=== PATIENT | female | born 1950 | race Caucasian/White ===

== ENCOUNTER → 2017-07-17 | Outpatient (CLI) | payer MEDICARE ==
[~2017-07-17] MED LIST: CYC10 PO; FAMO-1 IV; STERIOD
--- NOTE | 2017-07-17 09:02 | RADIOLOGY IMAGING REPORT ---
FACILITY: [facility] PATIENT NAME: Rosaline Jeff : 1950 MR: [id number] V: [id number] EXAM DATE: ORDERING PHYSICIAN: YORDAN MAYA TECHNOLOGIST: Location: [facility] Patient: Rosaline Jeff : 1950 Visit/Account:[id number] Date of Sevice: 07/17/2017 DEXA Scan Clinical history: Postmenopausal. Comparison: None available. HIP: Bone mineral density (BMD) measured in the Left total hip region correlates with a Z-score 0.7 and a T-score of -0.4 which is Normal as defined by the World Health Organization. The corresponding risk of fracture in the hip is Not increased compared with a young adult reference population. Bone mineral density (BMD) measured in the Femoral Neck region measures 0.872 g/cm2. Corresponding T score is -1.2. Osteopenia. Impression: 1. Left Hip: Normal. 2. Femoral Neck: Bone Mineral Density is 0.872 g/cm2 osteopenia The next DEXA scan of this patient should include the following sites: Left hip. FRAX? WHO Fracture Risk Assessment Tool link: <http://www.shef.ac.uk/FRAX/tool.jsp?locationValue=9> PLEASE NOTE: 1) The World Health Organization defines low BMD as follows: T-score Normal > -1 Osteopenia < -1 and > -2.5 Osteoporosis < -2.5 without fractures Established osteoporosis < -2.5 with fractures 2) In general, you may wish to consider: Diagnosis Treatment Follow-up DEXA Normal BMD Prevention 2-3 years Osteopenia Prevention/therapy 1-2 years Osteoporosis Therapy Yearly 3) Fracture risk estimated from the T-score is more accurate for vertebral fractures (often spontane ous) than for hip fractures. Report Dictated By: Mic Balderrama MD at 07/17/2017 8:55 AM Report E-Signed By: Mic Balderrama MD at 07/17/2017 8:57 AM WSN:[id number]
--- NOTE | 2017-07-24 11:18 | RADIOLOGY IMAGING REPORT ---
FACILITY: [facility] PATIENT NAME: MINERVA MALDONADO : [id number] MR: [id number] V: [id number] EXAM DATE: [id number] ORDERING PHYSICIAN: YORDAN MAYA TECHNOLOGIST: Annette Rivero PROCEDURE:BILATERAL DIGITAL SCREENING MAMMOGRAM WITH CAD ASSISTED INTERPRETATION AND 3D BREAST TOMOSYNTHESIS. COMPARISON:Prior mammograms dated 05/28/16, 02/23/15 and 11/27/12. INDICATIONS:SCREENING. FINDINGS: A small amount of fibroglandular tissue is seen throughout the breasts. The parenchymal pattern has remained stable when allowing for difference in mammographic technique and patient positioning. There is no evidence of malignant appearing mass, malignant appearing calcification or other secondary sign of malignancy in either breast. DIAGNOSTIC CATEGORY 1--NEGATIVE. RECOMMENDATIONS: ROUTINE MAMMOGRAM AND CLINICAL EVALUATION. IMPRESSION: Bi-RADS 1: No significant abnormality is seen. Images were reviewed with R2CAD and 3D breast tomosynthesis. Dictated by: Heather Walter M.D. on 07/17/2017 at 8:50 Transcribed by: DIXON on 07/17/2017 at 20:37 Approved by: Heather Walter M.D. on 07/18/2017 at 8:14 [facility]
== END ==
LOC: MAMO 00:57
PROVIDERS: ATTEND Physician Assistant
DX: Z13.820 Encounter for screening for osteoporosis (principal); Z12.31 Encounter for screening mammogram for malignant neoplasm of breast; N95.8 Other specified menopausal and perimenopausal disorders; M85.88 Other specified disorders of bone density and structure, other site
CPT/HCPCS: 77063; 77080; G0202; 77067

== ENCOUNTER → 2018-07-10 | Outpatient (CLI) | payer MEDICARE ==
--- NOTE | 2018-07-10 16:45 | RADIOLOGY IMAGING REPORT ---
FACILITY: [facility] PATIENT NAME: Rosaline Jeff : 1950 MR: [id number] V: [id number] EXAM DATE: ORDERING PHYSICIAN: YORDAN MAYA TECHNOLOGIST: Location: [facility] Patient: Rosaline Jeff : 1950 Visit/Account:[id number] Date of Sevice: 07/10/2018 Left lower extremity venous Doppler duplex ultrasound scan. HISTORY: Localized edema, pain inner thigh for one month. COMPARISON: None. A venous color flow Doppler duplex ultrasound scan with spectral analysis was performed on the left l ower extremity. The left greater saphenous vein is thrombosed from the knee to the saphenofemoral ju nction. The trifurcation veins, popliteal vein, superficial femoral vein, and common femoral vein compress an d augment normally. No filling defects are present to suggest acute or chronic thrombosis in the deep venous system. IMPRESSION: Left greater saphenous vein superficial thrombophlebitis. Otherwise negative for acute deep vein thrombosis. Report Dictated By: Martinez Esteban MD at 07/10/2018 4:39 PM Report E-Signed By: Martinez Esteban MD at 07/10/2018 4:41 PM WSN:[id number]
== END ==
LOC: US 14:48
PROVIDERS: ATTEND Physician Assistant
DX: R60.0 Localized edema (principal); I80.02 Phlebitis and thrombophlebitis of superficial vessels of left lower extremity

== ENCOUNTER 2018-10-22 08:53 | Observation (INO) | payer MEDICARE ==
[~2018-10-22] VITALS: Ht 170.2 cm; Wt 77.6 kg
[~2018-10-22 08:53] MED LIST changes: -FAMO-1 IV; +FAMO-1 PO
[2018-10-22] MEDS ORDERED: LORazepam 2 MG/ML VIAL IVP ONE ×2 (09:20→10:45)
[2018-10-22] MEDS ORDERED: fentaNYL CITR 100 MCG/2 ML AMP IVP ONE (09:20)
--- NOTE | 2018-10-22 09:23 | ER Report ---
History and Physical Time Seen By MD: 09:23 Hx. of Stated Complaint: SEVERE L LEG PAIN, CLOT DX, DENIES BEING PRESCRIBED A BLOOD THINNER HPI/ROS CHIEF COMPLAINT: Atraumatic left knee pain HISTORY OF PRESENT ILLNESS: Patient is a 68-year-old female who presents to the emergency department with complaint of atraumatic left knee pain that is severe in intensity. She denies any known trauma however she states she works out 1-2 times a day but states the day prior to the swelling she did not work out. She denies any fevers or chills. She denies any redness to the joint. She does report some arthritis to the hands but it is never affected knee. She has severe pain with movement of the knee as well as bearing weight. Patient reports that she was seen here either in May of June 2018 for a palpable cord to her left inner leg and thigh. She was diagnosed with a superficial thrombophlebitis but no deep venous thrombosis was diagnosed. He is not currently on any anticoagulation. She has been taking both Motrin and Tylenol with minimal relief of discomfort because of the pain patient presents to the emergency department for evaluation. REVIEW OF SYSTEMS: Constitutional: No fever, no chills. Cardiovascular: No chest pain, no palpitations. Respiratory: No cough, no shortness of breath. Gastrointestinal: No abdominal pain, no vomiting. Musculoskeletal: Left knee pain and swelling Skin: No rashes. Allergies: Coded Allergies: No Known Drug Allergies (Verified , 03/07/08) Home Meds Reported Medications Famotidine (Pepcid) 20 Mg Tablet, 20 MG IV BID 03/07/08 Discontinued Reported Medications Cyclobenzaprine Hcl (Flexeril) 10 Mg Tab, 10 MG PO BID 03/07/08 Past Medical/Surgical History History of superficial venous thrombosis. History of arthritis to the hands. Hx Substance Use Disorder: No Hx Alcohol Use: No Constitutional Vital Sign - Last 24 Hours 10/22/18 10/22/18 10/22/18 10/22/18 08:59 09:01 09:08 09:23 Temp 98.1 Pulse 86 80 79 Resp 16 B/P (MAP) 135/63 135/63 (87) Pulse Ox 93 92 93 O2 Delivery Room Air 10/22/18 10/22/18 10/22/18 10/22/18 09:30 09:38 09:53 10:00 Pulse 82 79 B/P (MAP) 113/63 (80) 120/113 (115) Pulse Ox 95 92 10/22/18 10/22/18 10/22/18 10/22/18 10:08 10:23 10:30 10:38 Pulse 78 77 78 B/P (MAP) 140/88 (105) Pulse Ox 94 93 94 10/22/18 10/22/18 10/22/18 12:38 12:44 14:29 Temp 100.0 99.5 O2 Flow Rate 2.0 Physical Exam General appearance: Alert no distress. Left knee: There is no significant swelling. There is a moderate effusion There is no obvious deformity of the knee. There is moderate tenderness to the the knee joint. There is no overlying erythema. There is no tenderness proximal or distal to the knee. Neurologic exam: The patient has normal sensation distal to the injury. Vascular exam: Normal pulses and capillary refill in the foot [ ] DIFFERENTIAL DIAGNOSIS: After history and physical exam differential diagnosis was considered for knee injury including sprain, fracture, joint effusion, arthritis, infection, meniscus injury and soft tissue injury. Medical Decision Making Data Points Result Diagram: 10/22/18 0943 10/22/18 0943 Laboratory Hematology Test 10/22/18 09:43 10/22/18 11:04 10/22/18 13:40 Red Blood Count 4.42 M/uL (4.17-5.56) Mean Corpuscular Volume 88.0 fL (80.0-96.0) Mean Corpuscular Hemoglobin 29.8 pg (26.0-33.0) Mean Corpuscular Hemoglobin Concent 33.9 g/dL (32.0-36.0) Red Cell Distribution Width 13.5 % (11.5-14.5) Mean Platelet Volume 8.5 fL (7.2-11.1) Neutrophils (%) (Auto) 75.9 % (39.4-72.5) Lymphocytes (%) (Auto) 11.5 % (17.6-49.6) Monocytes (%) (Auto) 12.0 % (4.1-12.4) Eosinophils (%) (Auto) 0.3 % (0.4-6.7) Basophils (%) (Auto) 0.3 % (0.3-1.4) Nucleated RBC Relative Count (auto) 0.0 /100WBC Neutrophils # (Auto) 7.2 K/uL (2.0-7.4) Lymphocytes # (Auto) 1.1 K/uL (1.3-3.6) Monocytes # (Auto) 1.1 K/uL (0.3-1.0) Eosinophils # (Auto) 0.0 K/uL (0.0-0.5) Basophils # (Auto) 0.0 K/uL (0.0-0.1) Nucleated RBC Absolute Count (auto) 0.00 K/uL Erythrocyte Sedimentation Rate 11 mm/HOUR (0-30) D-Dimer Quantitative (PE/DVT) 1.86 ug/ml (0-0.50) Sodium Level 140 mmol/L (137-145) Potassium Level 3.2 mmol/L (3.5-5.0) Chloride Level 108 mmol/L (98-107) Carbon Dioxide Level 21 mmol/L (22-31) Blood Urea Nitrogen 8 mg/dl (7-18) Creatinine 0.80 mg/dl (0.52-1.04) Glomerular Filtration Rate Calc > 60.0 Random Glucose 110 mg/dl (75-110) Calcium Level 8.9 mg/dl (8.4-10.2) C-Reactive Protein 3.6 mg/dl (<1.0) Body Fluid Type Synovial fluid Body Fluid WBC 03033 Body Fluid RBC 3830 Body Fluid Neutrophils 73 % Body Fluid Lymphocytes 22 % Body Fluid Monocytes 5 % Body Fluid Eosinophils 0 % Body Fluid Basophils 0 % Body Fluid Crystals None Urine Color Denisha Urine Clarity Cloudy Urine pH 5.0 pH (4.8-9.5) Urine Specific [place] 1.028 Urine Protein Negative mg/dL (NEGATIVE) Urine Glucose (UA) Negative mg/dL (NEGATIVE) Urine Ketones Trace mg/dL (NEGATIVE) Urine Blood Negative (NEGATIVE) Urine Nitrite Negative (NEGATIVE) Urine Bilirubin Negative (NEGATIVE) Urine Urobilinogen Negative mg/dL (0.2-1.9) Urine Leukocyte Esterase Small (NEGATIVE) Urine RBC 5 /HPF (0-2/HPF) Urine WBC 12 /HPF (0-5/HPF) Urine Squamous Epithelial Cells Many /LPF (</=FEW) Urine Bacteria Negative /HPF (NONE-FEW) Urine Mucus Few /HPF (NONE-FEW) Chemistry Test 10/22/18 09:43 10/22/18 11:04 10/22/18 13:40 White Blood Count 9.5 k/uL (4.5-11.0) Red Blood Count 4.42 M/uL (4.17-5.56) Hemoglobin 13.2 g/dL (12.0-16.0) Hematocrit 39.0 % (34.0-47.0) Mean Corpuscular Volume 88.0 fL (80.0-96.0) Mean Corpuscular Hemoglobin 29.8 pg (26.0-33.0) Mean Corpuscular Hemoglobin Concent 33.9 g/dL (32.0-36.0) Red Cell Distribution Width 13.5 % (11.5-14.5) Platelet Count 281 K/uL (150-450) Mean Platelet Volume 8.5 fL (7.2-11.1) Neutrophils (%) (Auto) 75.9 % (39.4-72.5) Lymphocytes (%) (Auto) 11.5 % (17.6-49.6) Monocytes (%) (Auto) 12.0 % (4.1-12.4) Eosinophils (%) (Auto) 0.3 % (0.4-6.7) Basophils (%) (Auto) 0.3 % (0.3-1.4) Nucleated RBC Relative Count (auto) 0.0 /100WBC Neutrophils # (Auto) 7.2 K/uL (2.0-7.4) Lymphocytes # (Auto) 1.1 K/uL (1.3-3.6) Monocytes # (Auto) 1.1 K/uL (0.3-1.0) Eosinophils # (Auto) 0.0 K/uL (0.0-0.5) Basophils # (Auto) 0.0 K/uL (0.0-0.1) Nucleated RBC Absolute Count (auto) 0.00 K/uL Erythrocyte Sedimentation Rate 11 mm/HOUR (0-30) D-Dimer Quantitative (PE/DVT) 1.86 ug/ml (0-0.50) Glomerular Filtration Rate Calc > 60.0 Calcium Level 8.9 mg/dl (8.4-10.2) C-Reactive Protein 3.6 mg/dl (<1.0) Body Fluid Type Synovial fluid Body Fluid WBC 67821 Body Fluid RBC 3830 Body Fluid Neutrophils 73 % Body Fluid Lymphocytes 22 % Body Fluid Monocytes 5 % Body Fluid Eosinophils 0 % Body Fluid Basophils 0 % Body Fluid Crystals None Urine Color Denisha Urine Clarity Cloudy Urine pH 5.0 pH (4.8-9.5) Urine Specific [place] 1.028 Urine Protein Negative mg/dL (NEGATIVE) Urine Glucose (UA) Negative mg/dL (NEGATIVE) Urine Ketones Trace mg/dL (NEGATIVE) Urine Blood Negative (NEGATIVE) Urine Nitrite Negative (NEGATIVE) Urine Bilirubin Negative (NEGATIVE) Urine Urobilinogen Negative mg/dL (0.2-1.9) Urine Leukocyte Esterase Small (NEGATIVE) Urine RBC 5 /HPF (0-2/HPF) Urine WBC 12 /HPF (0-5/HPF) Urine Squamous Epithelial Cells Many /LPF (</=FEW) Urine Bacteria Negative /HPF (NONE-FEW) Urine Mucus Few /HPF (NONE-FEW) Coagulation Test 10/22/18 09:43 D-Dimer Quantitative (PE/DVT) 1.86 ug/ml Urinalysis Test 10/22/18 13:40 Urine Color Denisha Urine Clarity Cloudy Urine pH 5.0 pH (4.8-9.5) Urine Specific [place] 1.028 Urine Protein Negative mg/dL (NEGATIVE) Urine Glucose (UA) Negative mg/dL (NEGATIVE) Urine Ketones Trace mg/dL (NEGATIVE) Urine Blood Negative (NEGATIVE) Urine Nitrite Negative (NEGATIVE) Urine Bilirubin Negative (NEGATIVE) Urine Urobilinogen Negative mg/dL (0.2-1.9) Urine Leukocyte Esterase Small (NEGATIVE) Urine RBC 5 /HPF (0-2/HPF) Urine WBC 12 /HPF (0-5/HPF) Urine Squamous Epithelial Cells Many /LPF (</=FEW) Urine Bacteria Negative /HPF (NONE-FEW) Urine Mucus Few /HPF (NONE-FEW) Microbiology Microbiology Date/Time Source Procedure Growth Status 10/22/18 11:04 Synovial Fluid Knee Gram Stain - Final Resulted 10/22/18 11:04 Synovial Fluid Knee Body Fluid Culture Pending Resulted 10/22/18 11:04 Synovial Fluid Knee Anaerobic Culture Pending Resulted EKG/Imaging Imaging FACILITY: [facility] [place] PATIENT NAME: Rosaline Jeff : 1950 MR: [id number] V: [id number] EXAM DATE: ORDERING PHYSICIAN: HAYDER REAL TECHNOLOGIST: Location[place] [facility] [place] Patient: Rosaline Jeff : 1950 Visit/Account:[id number] Date of Sevice: 10/22/2018 Left knee Indication: Left knee swelling Comparison: None available Findings: 3 views left knee were obtained. Alignment is anatomic. Minimal spurring is seen involving the tibial tuberosity. Mild articular surface spurring is seen of the patella subtle enthesopathy at the insertion of the quadriceps tendon. Benign-appearing soft tissue calcifications are seen posterior to the joint space. IMPRESSION: 1. There is mild tricompartmental degenerative changes with joint effusion. No acute osseous finding. Report Dictated By: Mic Balderrama MD at 10/22/2018 11:29 AM Report E-Signed By: Mic Balderrama MD at 10/22/2018 11:31 AM WSN:[id number] ED Course/Re-evaluation ED Course 10/22/2018 9:28:36 am plan at this time will be to provide some pain relief with Ativan and fentanyl. We'll check CBC and basic metabolic panel, CRP, ESR we'll also x-ray left knee. We'll check d-dimer which if positive will perform ultrasound of the left lower extremity. Likely patient with joint effusion secondary to osteoarthritis. We will also perform arthrocentesis of the knee and send fluid for analysis. 10/22/2018 12:03:18 pm Procedure: Arthrocentesis. After verbal informed consent from patient explaining the risks including infection and bleeding a arthrocentesis was performed on the left knee. The arthrocentesis was performed after the patient was prepped and draped in the usual fashion. The joint was anesthetized with 1% lidocaine. Approximately 60cc of cloudy fluid was obtained. There were no complications. The procedure was performed by myself. Fluid was sent to the lab for analysis and culture 10/22/2018 12:42:44 pm spoke with regarding this patient history physical exam all pertinent lab data and imaging were discussed. His feeling is that this represents an inflammatory process and possible injury such as meniscus tear and/or reactive arthritis. He recommends an MRI which will obtain today. After the discussion however I found that the patient's temperature had gone up to 100.0; this along with the patient's severe pain with any joint movement makes be somewhat concerned about possible early joint infection. We'll obtain an MRI. Case discussed briefly with Dr. Taylor. We will obtain MRI and will call him after the results are done. Pain is currently controlled. 10/22/2018 2:24:41 pm patient returns from MRI awaiting results. Patient states pain is starting to come back." Will give 2nd dose of Toradol 15 mg IV. 10/22/2018 2:48:[address] Taylor from internal medicine. He is aware of the case as previously discussed. Patient having significant pain and unable to ambulate so I feel she will need admission and observation for pain control. Awaiting official MRI results. It is likely that this pain represents injuries likely due to the meniscus which could cause a reactive arthritis and joint aspirate as seen today. However there are some concerns of low grade fever and concerns of possible early septic arthritis so we will admit for observation at this time. Decision to Disposition Date: Oct 22, 2018 Decision to Disposition Time: 14:54 Depart Departure Latest Vital Signs Vital Signs Date Time Temp Pulse Resp B/P (MAP) Pulse Ox O2 Delivery O2 Flow Rate FiO2 10/22/18 14:29 99.5 10/22/18 12:44 2.0 10/22/18 10:38 78 94 10/22/18 10:30 140/88 (105) 10/22/18 08:59 16 Room Air Impression: Primary Impression: Knee effusion, left Condition: Improved Disposition: Admitted from ER (Observation to Dr Taylor) Referrals: MICHEAL MCKINNEY DO (PCP) HAYDER REAL MD Oct 22, 2018 09:23
[2018-10-22] MEDS ORDERED: ONDANSETRON 4 MG/2 ML VIAL ONE (09:38)
[2018-10-22 10:21] LABS: PLATELET COUNT, AUTOMATED 281 K/uL (150-450)
[2018-10-22] MEDS ORDERED: MORPHINE 4 MG/ML SDV IVP ONE (10:35)
[2018-10-22] MEDS ORDERED: KETOROLAC 15 MG/ML VIAL IVP ONE ×2 (10:45→14:25)
--- NOTE | 2018-10-22 11:37 | RADIOLOGY IMAGING REPORT ---
FACILITY: [facility] [place] PATIENT NAME: Rosaline Jeff : 1950 MR: [id number] V: [id number] EXAM DATE: ORDERING PHYSICIAN: HAYDER REAL TECHNOLOGIST: Location: [facility] [place] Patient: Rosaline Jeff : 1950 Visit/Account:[id number] Date of Sevice: 10/22/2018 Left knee Indication: Left knee swelling Comparison: None available Findings: 3 views left knee were obtained. Alignment is anatomic. Minimal spurring is seen involving the tibial tuberosity. Mild articular surfa ce spurring is seen of the patella subtle enthesopathy at the insertion of the quadriceps tendon. Benign-appearing soft tissue calcifications are seen posterior to the joint space. IMPRESSION: 1. There is mild tricompartmental degenerative changes with joint effusion. No acute osseous finding. Report Dictated By: Mic Balderrama MD at 10/22/2018 11:29 AM Report E-Signed By: Mic Balderrama MD at 10/22/2018 11:31 AM WSN:[id number]
--- NOTE | 2018-10-22 12:34 | RADIOLOGY IMAGING REPORT ---
FACILITY: [facility] PATIENT NAME: Rosaline Jeff : 1950 MR: [id number] V: [id number] EXAM DATE: ORDERING PHYSICIAN: HAYDER REAL TECHNOLOGIST: Location: [facility] [place] Patient: Rosaline Jeff : 1950 Visit/Account:[id number] Date of Sevice: 10/22/2018 US VENOUS LOWER EXT LT HISTORY: swelling hx of SVT COMPARISON: 07/10/2018 FINDINGS: Grayscale, duplex and color Doppler interrogation of the left lower extremity deep veins from common femoral vein to proximal calf was completed. The greater saphenous vein in the proximal thigh was marin luated using similar technique. Common femoral vein - Negative. Femoral vein - Negative. Deep femoral vein - Negative. Popliteal vein - Negative. Visualized deep calf veins - Negative. Popliteal fossa: Large Cruz's cyst, 6.7 cm length and containing calcific debris/loose bodies. Greater saphenous vein in the proximal thigh: Thrombosed within the proximal to mid thigh, extending to the saphenofemoral junction but not into the femoral vein. IMPRESSION: 1. Persistent or recurrent superficial vein thrombus involving the left greater saphenous vein proxim al to mid thigh, extending to the saphenofemoral junction but not into the femoral vein this time. 2. Negative left lower extremity ultrasound for deep vein thrombus (DVT). 3. Large Cruz's cyst left popliteal fossa containing calcified debris/loose bodies. Report Dictated By: Deejay Smart MD at 10/22/2018 12:23 PM Report E-Signed By: Deejay Smart MD at 10/22/2018 12:29 PM WSN:[id number]
--- NOTE | 2018-10-22 14:52 | RADIOLOGY IMAGING REPORT ---
FACILITY: [facility] [place] PATIENT NAME: Rosaline Jeff : 1950 MR: [id number] V: [id number] EXAM DATE: ORDERING PHYSICIAN: HAYDER REAL TECHNOLOGIST: Location: [facility] [place] Patient: Rosaline Jeff : 1950 Visit/Account:[id number] Date of Sevice: 10/22/2018 MRI left knee Indication: Pain Comparison: None available. Technique: Multiplanar, multisequence MRI examination is performed of the left knee without contrast. Findings: Medial compartment: There is irregular complex undersurface tear within the posterior horn medial meniscus with extension into the peripheral body as well. Focal high-grade chondral defect within the mid weightbearing medial condyle cartilage. There is also focal moderate to high-grade undersurface tearing of the mid anterior weightbearing medial tibial pl ateau cartilage. Lateral compartment: Partial tearing posterior root attachment of the lateral meniscus with a small oblique undersurface t ear within the posterior horn as well. Partial-thickness fissuring and irregularity lateral femoral condyle and lateral tibial plateau carti gisela. Patellofemoral compartment: High-grade chondral loss medial facet patella cartilage and the mid and medial trochlea groove cartil age Bones and marrow: No acute fracture-dislocation. Multiple small loose bodies seen within a prominent Cruz's cyst. Ligaments and tendons: ACL and PCL are intact. The extensor mechanism is intact. Moderate edema superficial and deep to the MCL which is otherwise intact. The iliotibial band, biceps femoris tendon, and the fibular collateral ligament is intact Mild tendinopathy proximal popliteus tendon seen. Soft tissues: There is a moderate sized suprapatellar joint effusion with prominent synovial stranding suggesting r eactive synovitis. There is also a large sized Cruz's cyst containing multiple loose bodies as well. IMPRESSION: 1. Bilateral meniscal tears as above. 2. Tricompartment chondral loss as above with multiple prominent loose bodies within a large Cruz's cyst. 3. Mild MCL sprain. Report Dictated By: Shakeel Yung MD at 10/22/2018 2:44 PM Report E-Signed By: Shakeel Yung MD at 10/22/2018 2:48 PM WSN:[id number]
[2018-10-22 15:42] VITALS: BP 125/68
[2018-10-22] MEDS ORDERED: oxyCODONE HCL 5 MG CAP PO PRN (17:05)
--- NOTE | 2018-10-22 17:51 | History & Physical ---
History of Present Illness History of Present Illness 68yo female with h/o Crohn's disease and a recent treatment with metronidazole for a vaginal infection (presumably bacterial vaginosis) who presented to the ER for progressive knee pain and swelling. 2 days ago, she woke up and had left knee and ankle soreness. The ankle discomfort improved, but the knee pain worsened. Last night the knee started swelling and she could barely sleep secondary to the pain. This morning, she couldn't bear weight, so came to the ER. She denies any recent trauma or concern for injury. She is very active and exercises up to twice daily. She has never had problems with gout or arthritis of the knees. She never has had any surgeries to the knees. She did have some chills last night and vomited this morning. Ibuprofen and Tylenol did little to help the pain. In the ER, 60cc of synovial fluid was aspirated. She was given Toradol x2, morphine, and fentanyl. History Problems: (1) History of colon surgery (2) History of cholecystectomy (3) Crohn disease Home Meds Reported Medications Famotidine (Pepcid) 20 Mg Tablet, 20 MG IV BID 03/07/08 Discontinued Reported Medications Cyclobenzaprine Hcl (Flexeril) 10 Mg Tab, 10 MG PO BID 03/07/08 Allergies: Coded Allergies: No Known Drug Allergies (Verified , 03/07/08) Hx Smoking: No Hx Alcohol Use: Yes Review of Systems All Systems Reviewed/Normal: Yes, Except as Noted Exam Vital Signs Vital Signs Date Time Temp Pulse Resp B/P (MAP) Pulse Ox O2 Delivery O2 Flow Rate FiO2 10/22/18 15:42 99.2 77 16 125/68 (87) 97 Nasal Cannula 1.0 General Appearance: Alert, Awake, No Acute Distress Neuro: No Gross deficits Eyes: PERRLA ENT: Moist Mucous Membranes Cardiovascular: Regular Rate and Rhythm Respiratory: Clear to Auscultation GI: Other (Soft, diffusely tender to palpation (chronic)) Extremities: Other (Left knee is warm and swollen. Tender to palpation along the lateral joint lines and prepatellar.) Medical Decision Making Data Points Result Diagram: 10/22/1894210/22/18942 Item Value Date Time Neutrophils (%) (Auto) 75.9 % H 10/22/18942 Lymphocytes (%) (Auto) 11.5 % L 10/22/18 0943 Monocytes (%) (Auto) 12.0 % 10/22/18 0943 Eosinophils (%) (Auto) 0.3 % L 10/22/18 0943 Basophils (%) (Auto) 0.3 % 10/22/18 0943 Urine Leukocyte Esterase Small H 10/22/18 1340 Urine RBC 5 /HPF 10/22/18 1340 Urine WBC 12 /HPF 10/22/18 1340 Urine Squamous Epithelial Cells Many /LPF H 10/22/18 1340 Potassium Level 3.2 mmol/L L 10/22/18 0943 Carbon Dioxide Level 21 mmol/L L 10/22/18 0943 Blood Urea Nitrogen 8 mg/dl 10/22/18 0943 Creatinine 0.80 mg/dl 10/22/18 09 C-Reactive Protein 3.6 mg/dl H 10/22/18 09 Random Glucose 110 mg/dl 10/22/18 09 D-Dimer Quantitative (PE/DVT) 1.86 ug/ml H 10/22/18 09 SPEC #: [id number] EZEQUIEL: 10/22/18 STATUS: RES REQ #: [id number] RECD: 10/22/[address]: HAYDER REAL MD SOURCE: SYN FLD ENTR: 10/22/18 [facility] DR: MICHEAL MCKINNEY DO SPDESC: KNEE ORDERED: CULT BF/GS, CULT BF A/A COMMENTS: Additional Information: left Procedure Result Verified GRAM STAIN Final 10/22/18-1149 MODERATE WHITE BLOOD CELLS NO ORGANISMS SEEN CULTURE BODY FLUID PENDING ANAEROBE CULTURE PENDING EKG / Imaging Imaging Knee MRI - 1. Bilateral meniscal tears as above. 2. Tricompartment chondral loss as above with multiple prominent loose bodies within a large Cruz's cyst. 3. Mild MCL sprain. Venogram - 1. Persistent or recurrent superficial vein thrombus involving the left greater saphenous vein proximal to mid thigh, extending to the s aphenofemoral junction but not into the femoral vein this time. 2. Negative left lower extremity ultrasound for deep vein thrombus (DVT). 3. Large Cruz's cyst left popliteal fossa containing calcified debris/loose bodies. Knee Xray - 1. There is mild tricompartmental degenerative changes with joint effusion. No acute osseous finding. Assessment and Plan Problems: (1) Knee effusion, left Status: Acute Assessment & Plan: She presented with 2 days of progressive knee pain and swelling. Aspiration of knee revealed 17k wbc with 73% neutrophils. There were no bacteria on gram stain nor crystals. WBC is normal. She did have a low grade fever. The MRI is showing bilateral meniscal tears and large loose bodies within bakers cysts. She was admitted because of her significant pain and conc munir for infection. I spoke with Dr. Colindres who thought that the likelihood of infection is pretty low. He is willing to see her in clinic tomorrow. We will continue scheduled Toradol, prn APAP and prn oxycodone. If the her WBC remains normal, the knee doesn't worsen, the culture is negative, and she is somewhat improved, then she can go see him tomorrow as an outpatient. Copies to: YORDAN MAYA PA-C; BELLA COLINDRES MD ; Venous Thromboembolism Antithrombotics Is Pt On Any Antithrombotics?: No Exam Sepsis Risk: No Definite Risk AUDRA JORGENSEN MD Oct 22, 2018 17:51
[2018-10-22] MEDS: KETOROLAC 15 MG/ML VIAL IVP SCH ×2 (17:53→23:13)
[2018-10-22 18:47] VITALS: BP 117/65
[2018-10-22] MEDS: FAMOTIDINE 20 MG TAB PO SCH (20:26)
[2018-10-22] MEDS: ACETAMINOPHEN 500 MG TAB PO PRN (20:26)
[2018-10-22] MEDS ORDERED: ENOXAPARIN 40 MG/0.4ML SYR SC SCH (21:00)
[2018-10-22] MEDS ORDERED: NAPROXEN 500 MG TAB PO SCH (21:00)
[2018-10-23] MEDS: KETOROLAC 15 MG/ML VIAL IVP SCH ×2 (05:11→12:13)
[2018-10-23] MEDS: ACETAMINOPHEN 500 MG TAB PO PRN ×2 (05:12→12:12)
[2018-10-23 05:57] LABS: PLATELET COUNT, AUTOMATED 236 K/uL (150-450)
[2018-10-23 07:42] VITALS: BP 96/55
[2018-10-23] MEDS ORDERED: POTASSIUM CHL 20 MEQ TABCR PO ONE (08:25)
[2018-10-23] MEDS: FAMOTIDINE 20 MG TAB PO SCH (09:14)
[2018-10-23 09:28] VITALS: Ht 170.2 cm; Wt 77.6 kg
[2018-10-23] MEDS ORDERED: KET10 PO (10:52)
[2018-10-23] MEDS ORDERED: ACET500T68 PO (10:52)
--- NOTE | 2018-10-23 11:00 | Hospitalist Depart ---
Discharge Summary Reason for Hosp/Final Diag: (1) Knee effusion, left Status: Acute Hospital Course & Plan: She presented with 2 days of progressive knee pain and swelling. Aspiration of knee revealed 17k wbc with 73% neutrophils. There were no bacteria on gram stain nor crystals. WBC is normal. She did have a low grade fever. The MRI is showing bilateral meniscal tears and large loose bodies within bakers cysts. She was admitted because of her significant pain and concern for infection. Dr. Taylor spoke with Dr. Colindres who thought that the likelihood of infection is pretty low. Dr. Colindres will see patient this afternoon at 2:45pm. She received scheduled Toradol, prn APAP and prn oxycodone. She appears to be improving on current regimen. She will continue outpatient recommendations from Dr. Colindres and prn Toradol and Tylenol. Her CRP elevated from 3.6 to 16.9 this morning, likely from inflammation to joint. Departure Latest Vital Signs Vital Signs 10/23/18 07:42 Temp 98.3 Pulse 69 Resp 14 B/P (MAP) 96/55 (69) Pulse Ox 90 O2 Delivery Nasal Cannula O2 Flow Rate 1.0 Weight (Pounds): 171 Result Diagram: 10/23/1852510/23/18525 Condition: Improved Discharge: Home, Self Care Discharge Instructions Home Meds Active Scripts Acetaminophen (TYLENOL EXTRA STRENGTH) 500 Mg Tablet, 1000 MG PO Q6H PRN for PAIN, #30 TAB Prov:JESSICA MAK [facility] 10/23/18 Ketorolac Tromethamine (KETOROLAC TROMETHAMINE) 10 Mg Tab, 10 MG PO Q6H, #12 TAB Prov:JESSICA MAK [facility] 10/23/18 Reported Medications Famotidine (Pepcid) 20 Mg Tablet, 20 MG PO BID 03/07/08 Discontinued Reported Medications Cyclobenzaprine Hcl (Flexeril) 10 Mg Tab, 10 MG PO BID 03/07/08 Diet: Regular Activity: As Tolerated, With Walker Special Instructions: Follow up with Dr. Colindres at 2:45 this afternoon. Use walker to help with ambulation. Use ice to joint to help with swelling. Keep leg elevated when resting. Take Tylenol or Toradol for pain as needed. Copies to: BELLA COLINDRES MD ; Venous Thromboembolism Antithrombotics Is Pt On Any Antithrombotics?: No JESSICA MAK [employer] Oct 23, 2018 11:00
[2018-10-23 12:16] VITALS: BP 145/79
== END 2018-10-23 10:52 | disposition home or self-care (01) ==
LOC: ER 09:24 → MED 15:08 → INTOOBSV 15:08
PROVIDERS: ADMIT Internal Medicine; ATTEND Internal Medicine
DX: M25.462 Effusion, left knee (principal); R11.10 Vomiting, unspecified
CPT/HCPCS: 20610; 36415; 73562; 73721; 81001; 85025; 85379; 85651; 86140; 87071; 87073; 87205; 89050; 89060; 93971; 96372; 96374; 96375; 96376; 97116; 99284; A9270; G0378; J1650; J1885; J2060; J2270; J2405; J3010; 82040; 82247; 82310; 82374; 82435; 82565; 82947; 84075; 84132; 84155; 84295; 84450; 84460; 84520

== ENCOUNTER → 2018-10-23 | Outpatient (REF) | payer MEDICARE ==
[~2018-10-23] MED LIST changes: +ACET500T68 PO; +KET10 PO
[2018-10-23 09:28] VITALS: BMI 26.8
== END ==
LOC: ZZPBJ 16:34
PROVIDERS: ATTEND Orthopaedic Surgery Hand Surgery
DX: M25.562 Pain in left knee (principal); R22.42 Localized swelling, mass and lump, left lower limb
CPT/HCPCS: 87071; 87073; 87205; 89050; 89060

== ENCOUNTER → 2018-11-13 | Outpatient (CLI) | payer MEDICARE ==
[2018-10-23 09:28] VITALS: BMI 26.8
--- NOTE | 2018-11-13 14:39 | RADIOLOGY IMAGING REPORT ---
FAC[place] [facility] [place]IENT NAME: MINERVA MALDONADO : [id number] MR: [id number] V: [id number] EXAM DATE: [id number] ORDERING PHYSICIAN: YORDAN MAYA TECHNOLOGIST: Tori Smith PROCEDURE:BILATERAL DIGITAL SCREENING MAMMOGRAM WITH CAD ASSISTED INTERPRETATION & 3D TOMOSYNTHESIS COMPARISON:Prior mammograms dated 07/17/17, 05/28/16, 02/23/15, 11/27/12 INDICATIONS:SCREENING FINDINGS: The breasts are almost entirely fatty. The parenchymal pattern has remained stable when allowing for differences in mammographic technique & patient positioning. DIAGNOSTIC CATEGORY 1--NEGATIVE. RECOMMENDATIONS: ROUTINE MAMMOGRAM AND CLINICAL EVALUATION. IMPRESSION: BIRADS 1: Negative. No significant abnormality is seen. Dictated by: Heather Walter M.D. on 11/13/2018 at 11:16 Transcribed by: FREDERIC on 11/13/2018 at 12:33 Approved by: Heather Walter M.D. on 11/13/2018 at 14:38 [facility]
== END ==
LOC: MAMO 01:00
PROVIDERS: ATTEND Physician Assistant
DX: Z12.31 Encounter for screening mammogram for malignant neoplasm of breast (principal)
CPT/HCPCS: 77063; 77067

== ENCOUNTER 2018-11-17 01:06 | Outpatient (RCR) | payer MEDICARE ==
[2018-10-23 09:28] VITALS: BMI 26.8
--- NOTE | 2018-11-23 16:15 | RADIOLOGY IMAGING REPORT ---
FACILITY: [facility] - [place] PATIENT NAME: Rosaline Jeff : 1950 MR: [id number] V: [id number] EXAM DATE: ORDERING PHYSICIAN: KIERSTEN ARRIOLA TECHNOLOGIST: Location: [facility] Patient: Rosaline Jeff : 1950 Visit/Account:[id number] Date of Sevice: 11/17/2018 Examination: ABSCESS LOCAL WHOLE BODY, Ga-67 Comparison: None. History: Inflammation. Left wrist and knee pain. Procedure: Following the uneventful administration of 5.1 mCi Ga-67 intravenously, standard whole bod y anterior and posterior planar imaging is acquired 24 and 72 hours following injection. FINDINGS: Physiologic tracer distribution. There is greater than expected periarticular tracer activity most notably at the knees and wrists as well as to lesser extent the elbows, shoulders, and feet/ankles. IMPRESSION: Increased periarticular activity greatest at the knees and wrists is suggestive of a nonspecific infl ammatory polyarthropathy. Infection is considered less likely. Report Dictated By: Paul Monique MD at 11/23/2018 12:51 PM Report E-Signed By: Paul Monique MD at 11/23/2018 4:12 PM WSN:[id number]
== END 2018-11-18 18:00 | disposition home or self-care (01) ==
LOC: NUC 01:06
PROVIDERS: ATTEND Internal Medicine
DX: M06.09 Rheumatoid arthritis without rheumatoid factor, multiple sites (principal)
CPT/HCPCS: 78806; A9556